=== PATIENT | male | born 1990 | race Caucasian/White ===

== ENCOUNTER 2019-08-01 18:25 | Emergency (ER) | payer OTHER, SELFPAY ==
--- NOTE | ~2019-08-01 | CT_ITS ---
EXAMINATION: CT cervical spine wo con DATE: 08/01/2019 19:03 INDICATION: Neck pain TECHNIQUE: Computed tomography (CT) of the cervical spine was performed without intravenous contrast. The dose-length product (DLP) was 298.06 mGy-cm. Automated exposure control and iterative reconstruc tion technique were employed. COMPARISON: 03/03/2017 FINDINGS: There is straightening of the cervical spine which can be positional or due to muscular spa sm. The vertebral body heights, alignment, and intervertebral disc spaces are normal. There is mild m ultilevel uncovertebral joint osteoarthritis at multiple levels. There is no fracture. IMPRESSION: 1. Mild cervical spondylosis without acute findings or significant interval change. Reviewed, dictated and finalized at location A. IMPRESSION: 1. Mild cervical spondylosis without acute findings or significant interval kaelyn nge.
--- NOTE | ~2019-08-01 | CT_ITS ---
EXAMINATION: CT brain wo con INDICATION: Head injury COMPARISON: None TECHNIQUE: Standard unenhanced head CT. The dose-length product (DLP) was 605.33 mGy-cm. The mA was a djusted according to patient size. Iterative reconstruction technique was employed. FINDINGS: There is no intracranial hemorrhage, acute infarction, or abnormal mass lesion. The ventric les are normal. There is no abnormal mass effect or midline shift. The moreira-white matter differentiat ion is normal. The basal cisterns are patent. The orbits are normal. The paranasal sinuses, mastoids and calvarium are normal. IMPRESSION: 1. No acute intracranial abnormality. Reviewed, dictated and finalized at location A.
[2019-08-01 18:32] VITALS: BP 147/81; PULSE 70; RESP 16; TEMP 36.4; O2SAT 100
--- NOTE | 2019-08-01 18:41 | ED.GENADULT ---
HPI - General Adult General Chief complaint: Head Injury <Dylan Seay PA-C - Last Filed: 08/01/19 19:27> Stated complaint: Fall, Head Injury <CONNER Mendieta Last Filed: 08/01/19 19:27> Time Seen by Provider: 08/01/19 18:32 <Dylan Seay PA-C - Last Filed: 08/01/19 19:27> Source: patient <Dylan Seay PA-C - Last Filed: 08/01/19 19:27> Mode of arrival: ambulatory <Dylan Seay PA-C - Last Filed: 08/01/19 19:27> Limitations: no limitations <Dylan Seay PA-C - Last Filed: 08/01/19 19:27> History of Present Illness HPI narrative: Patient is a 29-year-old male who presents with head injury that occurred just prior to arrival was walking backwards when he fell back striking the head with possible loss of consciousness and was witnessed presents noting severe headache with nausea dizziness initially has slurred speech which has resolved. Patient also notes mild neck pain patient on arrival in the room in no distress presents per private vehicle <Dylan Seay PA-C - Last Filed: 08/01/19 19:27> Related Data Home medications: Home Medications Medication Instructions Recorded Confirmed No Home Medications 08/01/19 08/01/19 <Dylan Seay PA-C - Last Filed: 08/01/19 19:27> Allergies/adverse reactions: Allergies Allergy/AdvReac Type Severity Reaction Status Date / Time No Known Allergies Allergy Mild Verified 08/01/19 18:31 <Dylan Seay PA-C - Last Filed: 08/01/19 19:27> Review of Systems Review of Systems: All systems reviewed & are unremarkable except as noted in HPI and below <Dylan Seay PA-C - Last Filed: 08/01/19 19:27> PMFSH Social History Social History: Social History Smoking status: Never smoker Alcohol intake: never Gender identity (if verbalized by the patient): Male <CONNER Mendieta Last Filed: 08/01/19 19:27> Exam Narrative: Exam Narrative: GENERAL: Well-appearing, well-nourished, and in no acute distress. HEAD: Normocephalic, hematoma of the posterior scalp EYES: PERRLA and EOMI. ENT: Nares clear, no rhinorrhea or epistaxis. Mucous membranes moist. NECK: Supple. No adenopathy or masses. CHEST: Clear to auscultation. No respiratory distress. No wheezes rales or rhonchi HEART: Regular rate and rhythm. No murmur heard. EXTREMITIES: Normal range of motion. No edema. Paraspinal cervical tenderness no midline tenderness SKIN: Warm, dry, no rash. NEURO: No focal deficits. Alert and oriented x3. Cranial nerves II through XII grossly intact PSYCH: Normal mood and affect. <CONNER Mendieta Last Filed: 08/01/19 19:27> Course Course Emergency Course: Patient in the room in no distress aware of case findings treatment plan and diagnosis <CONNER Mendieta Last Filed: 08/01/19 19:27> Vital Signs Vital signs: Vital Signs Temperature 36.4 C 08/01/19 18:32 Pulse Rate 70 08/01/19 18:32 Respiratory Rate 16 08/01/19 18:32 Blood Pressure 147/81 H 08/01/19 18:32 Pulse Oximetry 100 08/01/19 18:32 Temperature 36.4 C 08/01/19 18:32 Pulse Rate 75 08/01/19 19:22 Respiratory Rate 20 08/01/19 19:22 Blood Pressure 133/80 08/01/19 19:22 Pulse Oximetry 100 08/01/19 19:22 <CONNER Mendieta Last Filed: 08/01/19 19:27> Vital Signs Temperature 36.4 C 08/01/19 18:32 Pulse Rate 70 08/01/19 18:32 Respiratory Rate 16 08/01/19 18:32 Blood Pressure 147/81 H 08/01/19 18:32 Pulse Oximetry 100 08/01/19 18:32 Temperature 36.4 C 08/01/19 18:32 Pulse Rate 75 08/01/19 19:22 Respiratory Rate 20 08/01/19 19:22 Blood Pressure 133/80 08/01/19 19:22 Pulse Oximetry 100 08/01/19 19:22 <Kelsey Aranda MD - Last Filed: 08/01/19 19:30> Medical Decision Making MDM Narrative Medical decision making narrative: Patient in
[2019-08-01 19:22] VITALS: BP 133/80; PULSE 75; RESP 20; O2SAT 100
[2019-08-01 19:30] VITALS: BP 133/80; PULSE 67; RESP 20; O2SAT 100
== END 2019-08-01 19:34 | disposition home or self-care (01) ==
PROVIDERS: Emergency Provider Emergency Medicine; PCP Family Medicine
DX: S09.90XA Unspecified injury of head, initial encounter (principal); S16.1XXA Strain of muscle, fascia and tendon at neck level, initial encounter; M47.812 Spondylosis without myelopathy or radiculopathy, cervical region; W18.39XA Other fall on same level, initial encounter
CPT/HCPCS: 70450; 72125; 99284